=== PATIENT | female | born 1995 | race Caucasian/White ===

== ENCOUNTER 2018-12-26 16:07 | Emergency (ER) | payer SELFPAY ==
[~2018-12-26] VITALS: Ht 180.3 cm; Wt 118.2 kg
[2018-12-26 16:13] VITALS: Ht 180.3 cm; Wt 118.2 kg
[2018-12-26] MEDS ORDERED: ROBAXIN500 MG PO (17:38)
[2018-12-26 17:50] VITALS: BP 110/84
== END 2018-12-26 17:51 | disposition home or self-care (01) ==
LOC: D.ER 16:07
DX: S29.012A Strain of muscle and tendon of back wall of thorax, initial encounter (principal); V43.52XA Car driver injured in collision with other type car in traffic accident, initial encounter; Y93.89 Activity, other specified; Y92.410 Unspecified street and highway as the place of occurrence of the external cause